=== PATIENT | male | born 1995 | race Caucasian/White ===

== ENCOUNTER 2016-10-11 00:32 | Emergency (ER) | payer OTHER, SELFPAY ==
[2016-10-11] MEDS ORDERED: Dexamethasone 20 MG/5 ML VIAL ONE (01:14)
[2016-10-11] MEDS ORDERED: Ondansetron HCl/PF 4 MG/2 ML Vial ONE (01:14)
[2016-10-11 01:16] LABS: #Basophils 0.1 thou/uL (0.0-0.2); #Eosinphils 0.2 thou/uL (0.0-0.7); #Lymphocytes 2.1 thou/uL (1.20-3.40); #Neutrophils 9.6 thou/uL (1.40-6.50); %Basophils 0.7 % (0.0-1.0); %Eosinophils 1.8 % (0.0-10.0); %Lymphocytes 16.1 % (21.0-51.0); %Monocytes 7.4 % (0.0-10.0); %Neutrophils 74.1 % (42.0-75.0); Hemoglobin 13.5 g/dL (14.0-18.0); Mean Corpuscular HGB CONC 35.1 g/dL (32.0-36.0); Mean Corpuscular Hemoglobin 31.6 pg (27.0-31.0); Mean Corpuscular Volume 90.1 fl (80.0-94.0); Mean Platelet Volume 7.2 fL (7.4-10.4); Platelet Count 268 thou/uL (130-400); RBC Distribution Width 10.6 % (11.5-14.5); Red Blood Cell (RBC) Count 4.27 mill/uL (4.70-6.10); White Blood Cell (WBC) Count 12.9 thou/uL (4.8-10.8)
[2016-10-11 01:33] LABS: Anion Gap 12 mmol/L (10-20); BUN (Urea Nitrogen) 11 mg/dL (8.9-20.6); Calc. Creatinine Clearance 0 mL/min (70-130); Calcium 8.4 mg/dL (7.8-10.44); Carbon Dioxide 26 mmol/L (22-29); Chloride 105 mmol/L (98-107); Estimated GFR-MDRD Greater than 90; Glucose 100 mg/dL (70-105); Potassium 3.3 mmol/L (3.5-5.1); Sodium 140 mmol/L (136-145)
--- NOTE | 2016-10-11 08:13 | CT ---
PRELIMINARY REPORT/[facility]/EMERGENCY AFTER HOURS PROCEDURE: EXAM: CT Neck With Intravenous Contrast CLINICAL HISTORY: 21 years old, male; Pain; Painful swallowing; Patient HX: Right peritonsillar swelling TECHNIQUE: Axial computed tomography images of the neck with intravenous contrast. This CT exam was performed u sing one or more of the following dose reduction techniques: automated exposure control, adjustment of the mA and/or kV according to patient size, and/or use of iterative reconstruction technique. Coronal and sagittal reformatted images were created and reviewed. CONTRAST: 96 mL of ISOVUE 370 administered intravenously. COMPARISON: No relevant prior studies available. FINDINGS: Nasopharynx: Unremarkable. Oropharynx: There is a 1.3 x 2.2 x 1.6 cm fluid collection in the right lingual tonsil. Hypopharynx: Unremarkable. Larynx: Unremarkable. Normal epiglottis. Trachea: Unremarkable. Retropharyngeal space: Unremarkable. Submandibular/parotid glands: Unremarkable. Glands are normal in size. Thyroid: Unremarkable. No enlarged or calcified nodules. Bones/joints: No acute fracture. Soft tissues: Unremarkable. Vasculature: No acute findings. Lymph nodes: Unremarkable. No lymphadenopathy. Lung apices: Unremarkable as visualized. IMPRESSION: 1.3 x 2.2 x 1.6 cm right lingual tonsillar abscess. Thank you for allowing us to participate in the care of your patient. Dictated and Authenticated by: Eve Downs MD 10/11/2016 2:50 AM Central Time ([place] \T\ [place]) FINAL REPORT EMERGENCY AFTER HOURS CT OF NECK WITH CONTRAST: Date: 10/11/16 FINDINGS/IMPRESSION: I agree with the findings and impression given in the preliminary report per [facility] physician. There i s a right peritonsillar abscess. POS: [facility]
[2016-10-11] MEDS ORDERED: Iopamidol 370 76% 100 ML VIAL ONE (09:00)
== END 2016-10-11 03:21 | disposition left against medical advice (07) ==
LOC: NAV ERS 00:32
DX: J36 Peritonsillar abscess (principal); F17.210 Nicotine dependence, cigarettes, uncomplicated
CPT/HCPCS: 36415; 70491; 80048; 85025; 87070; 87081; 87430; 96372; 96374; 96375; J1100; J2270; J2405

== ENCOUNTER 2017-12-19 18:58 | Emergency (ER) | payer SELFPAY | END 2017-12-19 19:25 | LOC: NAV ERS 18:58 | DX: M54.5 Low back pain (principal); G89.29 Other chronic pain; F17.210 Nicotine dependence, cigarettes, uncomplicated; V49.69XA Unspecified car occupant injured in collision with other motor vehicles in traffic accident, initial encounter | CPT/HCPCS: 99283 ==

== ENCOUNTER 2018-05-29 21:49 | Emergency (ER) | payer SELFPAY ==
[2018-05-29] MEDS ORDERED: Cyclobenzaprine 10 MG TAB ONE (22:46)
[2018-05-29] MEDS ORDERED: Ketorolac Tromethamine 60 MG/2 ML VIAL ONE (22:48)
--- NOTE | 2018-05-29 23:11 | CT ---
CT LUMBAR SPINE WITHOUT CONTRAST 05/29/18 HISTORY: Pain. COMPARISON: None. FINDINGS: There are five nonribbearing lumbar type vertebra. No fracture. No malalignment. No significant listh esis. Low grade disc osteophyte complex at L4-5 bilaterally in the subforaminal zones causing mild bi lateral neural foraminal narrowing. Also appears to be a possible broad based posterior disc osteophy te complex at L5-S1 causing moderate bilateral neural foraminal narrowing incompletely evaluated on t he basis of this examination. No pars interarticularis defects. No listhesis. No free fluid in the pelvis. No retroperitoneal adenopathy. IMPRESSION: Mild spondylosis at L4-5 and L5-S1. No acute abnormality of the thoracic spine. POS: [facility]
== END 2018-05-29 23:37 | disposition home or self-care (01) ==
LOC: NAV ERS 21:49
DX: S39.012A Strain of muscle, fascia and tendon of lower back, initial encounter (principal); F41.9 Anxiety disorder, unspecified; F17.210 Nicotine dependence, cigarettes, uncomplicated; X50.1XXA Overexertion from prolonged static or awkward postures, initial encounter
CPT/HCPCS: 72131; 96372; J1885

== ENCOUNTER 2018-09-30 09:33 | Emergency (ER) | payer SELFPAY ==
[2018-09-30 10:01] LABS: #Basophils 0.1 thou/uL (0.0-0.2); #Eosinphils 0.1 thou/uL (0.0-0.7); #Lymphocytes 0.7 thou/uL (1.20-3.40); #Monocytes 0.5 thou/uL (0.11-0.59); #Neutrophils 7.5 thou/uL (1.40-6.50); %Basophils 0.6 % (0.0-1.0); %Eosinophils 1.2 % (0.0-10.0); %Monocytes 5.3 % (0.0-10.0); Hemoglobin 15.7 g/dL (14.0-18.0); Mean Corpuscular HGB CONC 32.3 g/dL (32.0-36.0); Mean Corpuscular Hemoglobin 29.6 pg (27.0-31.0); Mean Corpuscular Volume 91.7 fL (78.0-98.0); Mean Platelet Volume 7.7 fL (7.4-10.4); Platelet Count 227 thou/uL (130-400); RBC Distribution Width 11.3 % (11.5-14.5); Red Blood Cell (RBC) Count 5.31 mill/uL (4.70-6.10); White Blood Cell (WBC) Count 8.8 thou/uL (4.8-10.8)
[2018-09-30 10:23] LABS: ALT (SGPT) 21 U/L (8-55); AST (SGOT) 24 U/L (5-34); Albumin 4.3 g/dL (3.5-5.0); Alkaline Phosphatase 76 U/L (40-150); Anion Gap 15 mmol/L (10-20); BUN (Urea Nitrogen) 9 mg/dL (8.9-20.6); Bilirubin, Total 0.7 mg/dL (0.2-1.2); Calc. Creatinine Clearance 0 mL/min (70-130); Calcium 9.2 mg/dL (7.8-10.44); Carbon Dioxide 26 mmol/L (22-29); Chloride 101 mmol/L (98-107); Estimated GFR-MDRD Greater than 90; Globulin 3.7 g/dL (2.4-3.5); Glucose 63 mg/dL (70-105); Lipase 26 U/L (8-78); Sodium 138 mmol/L (136-145)
[2018-09-30 10:38] LABS: Bilirubin Negative (Negative); Blood, Urine Trace (Negative); Clarity Clear (Clear); Glucose, Urine (Dipstick) Negative (Negative); Leukocyte Negative (Negative); Nitrite Negative (Negative); Protein, Urine (Dipstick) Negative (Neg-Trace); Urobilinogen 0.2 mg/dL (0.2-1.0)
[2018-09-30 10:55] LABS: Bacteria/HPF None Seen HPF (None Seen); RBC/HPF 0-3 HPF (0-3); Squamous Epithelial 0-3 HPF (0-3); WBC/HPF 0-3 HPF (0-3)
--- NOTE | 2018-09-30 11:20 | ULT ---
US Abdomen Limited: 09/30/2018 10:51 AM CLINICAL HISTORY: Right upper quadrant abdominal pain with nausea and vomiting for one day. STUDY: Limited right upper quadrant ultrasound of abdomen. COMPARISON: None. FINDINGS: This exam is limited secondary to the patient's body habitus. Liver: Size: Normal. Echogenicity: Normal. Contour: Smooth. Mass: None. Bile ducts: No intrahepatic or extrahepatic biliary dilatation. Common bile duct measures 4 mm. Gallbladder: Normal. Pancreas: Cannot be seen secondary to bowel gas. Right kidney: No pelvicalyceal dilatation. Right kidney measuring 10.0 cm in length. IMPRESSION: Unremarkable exam.
== END 2018-09-30 11:52 | disposition home or self-care (01) ==
LOC: NAV ERS 09:33
DX: R55 Syncope and collapse (principal); R10.11 Right upper quadrant pain; G43.909 Migraine, unspecified, not intractable, without status migrainosus; F41.9 Anxiety disorder, unspecified; F17.210 Nicotine dependence, cigarettes, uncomplicated
CPT/HCPCS: 76705; 80053; 81003; 81015; 83690; 85025; 93005